=== PATIENT | male | born 1955 | race Caucasian/White ===

== ENCOUNTER 2016-10-04 05:49 | Day surgery (SDC) | payer BC ==
[~2016-10-04 05:49] MED LIST: FISH OIL 1,2001 EAC8 PO; LISINOPRIL40 M1 PO; MEN'S MULTI-VI1 EACH PO; MINOCYCLINE HC100 M1 PO; NORVASC10 M2 PO; PROAIR HFA8.5 GM INH; PROMETHAZINE HC25 M3 PO; TYLENOL EXTRA500 M1 PO; VITAMIN D3 PO; ZOFRAN4 M2 PO
== END 2016-10-04 11:25 ==
LOC: SHSB 05:49 → ORW 07:28 → PACU 08:49 → SHSB 09:35
PROC: 0WQF0ZZ Repair Abdominal Wall, Open Approach (ICD-10-PCS; principal; 2016-10-04)
PROC: 0FT44ZZ Resection of Gallbladder, Percutaneous Endoscopic Approach (ICD-10-PCS; 2016-10-04)
PROC: BF10YZZ Fluoroscopy of Bile Ducts using Other Contrast (ICD-10-PCS; 2016-10-04)
DX: K81.1 Chronic cholecystitis (principal); K42.9 Umbilical hernia without obstruction or gangrene; I10 Essential (primary) hypertension; E66.9 Obesity, unspecified; M17.0 Bilateral primary osteoarthritis of knee; G47.30 Sleep apnea, unspecified; Z79.899 Other long term (current) drug therapy; Z87.01 Personal history of pneumonia (recurrent); Z96.653 Presence of artificial knee joint, bilateral; Z98.890 Other specified postprocedural states
CPT/HCPCS: C1894; C9290; J0690; J2765; J7030; J7050; Q9966

== ENCOUNTER 2016-11-21 05:35 | Day surgery (SDC) | payer BC | END 2016-11-21 12:00 | disposition T | LOC: SRG 05:35 → SHSB 05:36 → ORW 07:22 → PACU 09:23 → SHSB 09:55 | PROC: 0YU54JZ Supplement Right Inguinal Region with Synthetic Substitute, Percutaneous Endoscopic Approach (ICD-10-PCS; principal; 2016-11-21) | PROC: 8E0W4CZ Robotic Assisted Procedure of Trunk Region, Percutaneous Endoscopic Approach (ICD-10-PCS; 2016-11-21) | DX: K40.90 Unilateral inguinal hernia, without obstruction or gangrene, not specified as recurrent (principal); I10 Essential (primary) hypertension; M19.90 Unspecified osteoarthritis, unspecified site; G47.30 Sleep apnea, unspecified; E66.9 Obesity, unspecified; Z68.32 Body mass index [BMI] 32.0-32.9, adult; Z90.49 Acquired absence of other specified parts of digestive tract; Z87.891 Personal history of nicotine dependence; Z98.890 Other specified postprocedural states | CPT/HCPCS: C1781; J0690; J1170; J2765 ==